=== PATIENT | female | born 1945 ===

== ENCOUNTER 2024-05-25 02:22 | Outpatient (CLI) | payer MEDICARE, BC, SELFPAY ==
--- NOTE | 2024-05-25 | DI.CTLCSR_ITS ---
Exam(s) CT CHEST LUNG CANCER SCREEN EXAM: CT CHEST LUNG CANCER SCREEN CLINICAL HISTORY: SCREENING FOR LUNG CA,CURRENT SMOKER, F17.210. TECHNIQUE: Imaging Protocol: Low Dose Technique CONTRAST MATERIAL: None COMPARISON: No exams were available for comparison FINDINGS: CHEST: LUNGS: There are no ominous pulmonary nodules. Benign-appearing increased markings are noted in the medial segment of the right middle lobe adjacent to the right heart border. No pleural effusions. MEDIASTINUM: There is no obvious hilar nor mediastinal adenopathy. CARDIAC: Heart size is normal. 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 The diameter of the mid aortic a rch is dilated, measuring 3.5 cm. The diameter of the proximal descending thoracic aorta is also inc reased, measuring 3 cm. The diameter of the tortuous descending thoracic aorta is also 3 cm. The laya men of the abdominal aorta cannot be assessed as this is a noninfused study. OTHER: No obvious adrenal masses. OSSEOUS: No significant osseous lesions.Fractures.. IMPRESSION: 1. No significant pulmonary nodules. No significant infiltrates nor pleural effusions nor intrathora cic adenopathy 2. Thoracic aorta is enlarged with measurements as above, including aneurysmal dilatation of the asce nding thoracic aorta to 5 cm. The thoracic aortic arch and descending thoracic aorta measures 3.5 cm and 3 cm, respectively. 3. Lung RADS Cat 1S - Negative: No nodules and definitely benign nodules. Other: Clinically Significa nt or Potentially Clinically Significant Findings (non lung cancer) Lung-RADS 1.0 CATEGORIES: Category 0 - Prior chest CT exam(s) being located for comparison. Category 1 - Annual screening in 12 months. No nodules or definitely benign nodules. Category 2 - Annual screening in 12 months. Benign appearance. Nodules with low likelihood of becomin g active cancer. Category 3 - 6-month follow-up. Probably benign. Short-term follow-up suggested. Nodules with low lik elihood of becoming active cancer. Category 4A - 3-month follow-up and CT/PET if >8 mm in size. Suspicious finding. Findings which requi re additional testing. Category 4B - Findings which require additional testing and tissue sampling. Category 4X - Category 3 or 4 nodules with additional features or imaging findings that increases the suspicion of malignancy. Modifier S- Potentially clinically significant findings (non lung cancer) RADIATION DOSE DELIVERED: 25.18mGy.cm Total DLP DATA REPOSITORY: All CT scans at this facility are submitted to the National Radiology Data Registry (NRDR) Dose Index Registry (DIR) with the [employer] ([employer]). RADIATION OPTIMIZATION: All CT scans at this facility use at least one of these dose optimization te chniques: automated exposure control; mA and/or kV adjustment per patient size (includes targeted exa ms where dose is matched to clinical indication); or iterative reconstruction.
== END 2024-05-25 02:42 ==
LOC: DI 02:23
PROVIDERS: Visit Provider Family Medicine
DX: F17.210 Nicotine dependence, cigarettes, uncomplicated (principal); Z12.2 Encounter for screening for malignant neoplasm of respiratory organs
CPT/HCPCS: 71271